=== PATIENT | female | born 1940 | race Caucasian/White ===

== ENCOUNTER 2020-12-28 07:54 | Day surgery (SDC) | payer MEDICARE, BC ==
[~2020-12-28 07:54] MED LIST: Lactated Ringers 1,000 ML IV SCH; Sodium Chloride 0.9% 10 ML Syringe FLUSH PRN
[2020-12-28] MEDS ORDERED: Propofol 200 MG/20 ML SDV ONE ×2 (08:29→09:01)
[2020-12-28] MEDS ORDERED: Lidocaine 2% 5 ML SDV ONE (09:01)
[2020-12-28] MEDS ORDERED: Glycopyrrolate 0.2 MG/ML SDV ONE (09:01)
--- NOTE | 2020-12-28 09:04 | PCM.PN ---
- General Info Date of Service: 12/28/20 - Review of Systems Systems Review Comment:: 80-year-old female with recent CT scan showing esophageal mass referred for EGD. Her recent history and physical is reviewed and no significant changes are noted. I have discussed the proposed EGD with the patient. Her questions were answered and she agrees to proceed accepting risks. - Patient Data Vitals - Most Recent: Last Vital Signs Temp 98.0 F 12/28/20 08:27 Pulse 55 L 12/28/20 08:27 Resp 18 12/28/20 08:27 BP 145/66 H 12/28/20 08:27 Pulse Ox 98 12/28/20 08:27 Weight - Most Recent: 83.915 kg Med Orders - Current: Current Medications Lactated Ringer's (Ringers, Lactated) 1,000 mls @ 125 mls/hr IV ASDIRECTED LAURIE Last Admin: 12/28/20 08:35 Dose: 125 mls/hr Documented by: Sodium Chloride (Sodium Chloride 0.9% 10 Ml Syringe) 10 ml FLUSH ASDIRECTED PRN PRN Reason: Keep Vein Open Discontinued Medications Propofol (Propofol 200 Mg/20 Ml Sdv) Confirm Administered Dose 200 mg .ROUTE .STK-MED ONE Stop: 12/28/20 08:30 Sepsis Event Note - Focused Exam Vital Signs: Vital Signs Temp Pulse Resp BP Pulse Ox 12/28/20 08:27 98.0 F 55 L 18 145/66 H 98 - Problem List Review Problem List Initiated/Reviewed/Updated: Yes - Assessment Assessment:: Esophageal mass on CT scan - Plan Plan:: EGD
--- NOTE | 2020-12-28 09:33 | PCM.OPNOTE ---
- General Post-Op/Procedure Note Date of Surgery/Procedure: 12/28/20 Operative Procedure(s): EGD with Biopsy Findings: Soft mass in wall of upper esophagus - Suspect Lipoma Exam otherwise normal Pre Op Diagnosis: Esophageal Mass Post-Op Diagnosis: Same Anesthesia Technique: MAC Primary Surgeon: Emir Singh Pathology: Biopsies of Esophageal Mass and Antrum EBL in mLs: 2 Complications: None Condition: Good
--- NOTE | 2020-12-28 11:22 | OR ---
Date of Procedure: 12/28/2020 PREOPERATIVE DIAGNOSIS: Esophageal mass. POSTOPERATIVE DIAGNOSIS: Esophageal mass. OPERATION PERFORMED: Esophagogastroduodenoscopy with biopsy. INDICATIONS FOR SURGERY: This patient was noted on recent CT scan of the chest to have a mass associated with her esophagus. She denies any dysphagia, but EGD is planned to evaluate this CT finding. FINDINGS: In the upper portion of the esophagus, there is a soft tissue bulge in the wall of the esophagus. The bulge extends approximately a third of the circumference of the esophagus and extends for approximately 3 cm. The mass extended from 22 to 25 cm from the incisors. The surface of the mass appears to have normal-appearing mucosa. No inflammation or ulceration are noted. The mass is also very soft and appeared grossly to be most consistent with a benign lipoma. The remainder of the esophagus, stomach, and duodenum appear normal. DESCRIPTION OF PROCEDURE: The patient was taken to the operating room. She was given intravenous sedation, and with her in the left lateral decubitus position, the Olympus gastroscope was advanced through a mouth guard into the oral cavity. The scope was then carefully advanced through the oropharynx down into the esophagus and then advanced through the esophagus, stomach, and into the duodenum, where examination to the third portion was performed. The duodenum appeared normal. The scope was withdrawn back into the stomach where full examination including retroflexed examination of the fundus was performed. Random biopsies of the antrum were taken to rule out H. pylori. The GE junction and esophagus were then carefully examined and the esophageal mass was clearly identified. Multiple biopsies of the surface of the mass were taken. Again, the mucosa overlying the entire mass grossly appeared normal. After the biopsies were taken, the scope was withdrawn and removed. The patient was then taken from the operating room in satisfactory condition. ESTIMATED BLOOD LOSS: 2 mL. COMPLICATIONS: None. PROGNOSIS: Good. DILIP Singh MD /[id number]
== END 2020-12-28 11:20 | disposition home or self-care (01) ==
LOC: LL.SDS 07:54
PROVIDERS: ATTEND Surgery
DX: K29.50 Unspecified chronic gastritis without bleeding (principal); K20.90 Esophagitis, unspecified without bleeding; K22.8 Other specified diseases of esophagus; K31.89 Other diseases of stomach and duodenum; I10 Essential (primary) hypertension; E21.3 Hyperparathyroidism, unspecified; E78.5 Hyperlipidemia, unspecified; M48.061 Spinal stenosis, lumbar region without neurogenic claudication; E66.9 Obesity, unspecified; Z68.36 Body mass index [BMI] 36.0-36.9, adult; Z88.0 Allergy status to penicillin; Z79.899 Other long term (current) drug therapy
CPT/HCPCS: 00731; 43239; 88305; J2704; J3490; J7120